=== PATIENT | male | born 1965 | race Caucasian/White ===

== ENCOUNTER → 2017-05-04 | Outpatient (CLI) | payer MEDICAID | END | disposition home or self-care (01) | LOC: DIB 09:07 | DX: E11.9 Type 2 diabetes mellitus without complications (principal); Z79.84 Long term (current) use of oral hypoglycemic drugs | CPT/HCPCS: 81210; 81219; 81245; 81272; 81275; 81276; 81310; 81311; 81401; 81403; 81455 ==